=== PATIENT | female | born 1995 | race Caucasian/White ===

== ENCOUNTER 2019-01-18 05:05 | Inpatient (IN) | payer OTHER, SELFPAY ==
[2019-01-18] VITALS (19 sets, daily range): BP systolic 106–136; BP diastolic 60–86; PULSE 65–97; RESP 14–18; TEMP 36.1–36.8; O2SAT 95–100; BMI 31.6
[2019-01-18] MEDS: Lactated Ringers 1,000 ML 999 ML IV (05:47)
[2019-01-18 06:14] LABS: Hematocrit 38.2 % (37-47); Hemoglobin 13.1 g/dl (12.0-15.0); Mean Corp Hgb Conc 34.3 g/gl (32-36); Mean Corpuscular Hgb 29.2 pg (27.0-32.0); Mean Corpuscular Volume 85.1 fL (81-99); Platelet Count 205 K/mm3 (150-450); RBC Distribution Width SD 39.8 fl (35.1-43.9); Red Blood Count 4.49 M/mm3 (4.2-5.4); White Blood Count 10.1 K/mm3 (4.4-11.0)
[2019-01-18] MEDS: Lactated Ringers 1,000 ML 150 ML IV (06:36)
--- NOTE | 2019-01-18 06:46 | HP.PCM_ITS ---
- Problem List (1) Status: Chronic Qualifiers: Weeks of gestation: 39 weeks Qualified Code(s): Z3A.39 - 39 weeks gestation of History Date of Admission: 01/18/19 Final [place]: 01/24/19 Final [place] Source: [place] <20 weeks Gestational age: 39 Weeks and 1 Days History of this : This is a 23 year-old, G [], P [], at 39 weeks gestational age. Presenting for repeat for history of 2 previous cesareans. has been uneventful. Allergies amoxicillin Allergy (Verified 01/18/19 05:26) Rash menthol [From BenGay] Allergy (Verified 01/18/19 05:26) Rash methyl salicylate [From BenGay] Allergy (Verified 01/18/19 05:26) Rash sulfa eye drops Allergy (Uncoded 01/18/19 05:26) Other chemical burn Home Medications: Home Medications Vits [Prenatabs FA] 1 tablet PO DAILY 09/06/15 Smoking Status: Never smoker Alcohol: None Heart Tracing: Doppler heart tones 145 History Past Pregnancies: Past Pregnancies Delivery Date Name GA/Weeks Outcome Route Weight Infant Gender Labor Length Anesthesia Delivery Location Provider FOB Expected Infant Delivery Method: Scheduled Section Number of Visits: 12 Review of Systems Constitutional: Denies: Anorexia, Malaise, Fatigue Cardiovascular: Denies: Chest Pain, Palpitations Respiratory: Denies: Cough, Shortness of Breath Gastrointestinal: Denies: Abdominal Pain, Diarrhea, Dyspepsia, Nausea Genitourinary: Denies: Dysuria Gynecological: Denies: Breast symptoms Psychiatric: Denies: Anxiety, Depression Hematologic/ Lymphatic: Denies: Hx of blood clot Physical Exam General: Alert, Oriented x3 HEENT: Atraumatic, PERRLA. Negative for: Thyromegaly Cardiovascular: Regular rate, Regular Rhythm, No murmurs Lungs: Clear to auscultation Abdomen: Soft, Gravid Extremities:: No clubbing Neurological: Neuro grossly intact, Muscle tone normal SAND MIXER MACHINE: Normal external genitalia Estimated gestational size: Appropriate for gestational size Presentation: Cephalic Assessment/Plan This is a 23 year-old, G [], P [], at 39 weeks gestational age. Plan is for Repeat this am
[2019-01-18 06:53] LABS: Scan Indicated on CBC? Y/N NO
[2019-01-18] MEDS: Sodium Citrate/Citric Acid 30 ML UDC PO (07:11)
[2019-01-18] MEDS: Oxytocin 30 units/NS 500 ml 30 UNITS/500 ML IV.SOLN 167 UNITS IV (07:45)
--- NOTE | 2019-01-18 08:23 | OP.PCM_ITS ---
Problem List (1) Status: Chronic Qualifiers: Weeks of gestation: 39 weeks Qualified Code(s): Z3A.39 - 39 weeks gestation of Delivery Final [place]: 01/24/19 Gestational age: 39 Weeks and 1 Days Indications for : Repeat Elective Description of Procedure: Anesthesia spinal, Anesthesiologist Dr. Pantoja, Surgeon Lorraine, Air Compressor Mechanic Ricardo, Estimated blood loss 500 ml, Urine output: 200ml clear In the operating room adequate spinal anesthesia was obtained. A Pfannenstiel incision was made through the old scar. And the paracolic gutters packed with moist sponges. The bladder flap was created and an incision made through a very thin lower uterine segment which was extended digitally and the was delivered without any difficulty he was vigorous at . The cord was clamped long and cut and he was handed over to the waiting nurses. IV Pitocin was given the uterus contracted and the placenta was delivered with gentle traction. It was cleared of clots and debris and the uterine incision was repaired in 2 layers using #1 Vicryl #0 Monocryl to imbricate the first layer for good hemostasis. The sponges were removed and parietal peritoneum were repaired with #3-0 Vicryl. The fascia was closed with a running layer of #1 Vicryl in 2 segments and the subcutaneous tissue was irrigated, hemostasis secured with the Bovie, interrupted sutures of #3-0 Vicryl placed in the skin closed with a subcuticular layer of #4-0 Vicryl and Steri-Strips. Sponge lap needle and instrument counts were correct x2. Thank you Amniotic Membrane Rupture Type: Artificial Amniotic Fluid Description: Clear Placenta Disposition: [facility] Drain: Grimaldo to straight drain Cord Entanglement: Around neck x 2, loose Cord Vessel Description: 3 Vessels Infant Gender: Male (1 minute): 8 (5 minute): 9 Delayed cord clamping: Yes Pre-op Antibiotic Given: Clindamycin 600mg IV x1 and Gentamicin 1.5mg/kg IV x1 Complications: None - Admit VTE Documentation VTE Present on Admission: Yes VTE Mechan Device Prophylaxis: SCD's VTE Pharm Prophylaxis ordered?: No Reason prophylaxis not ordered:: Procedure Not Indicated Vaginal Delivery Final [place]: 01/24/19 Gestational age: 39 Weeks and 1 Days
[2019-01-18 09:27] LABS: HIV - WCH Non-Reactive (Nonreactive)
[2019-01-18] MEDS: Lactated Ringers 1,000 ML 100 ML IV ×2 (10:06→20:39)
[2019-01-18] MEDS: Acetaminophen 500 MG Tablet 1000 MG PO ×2 (10:46→18:07)
[2019-01-19] VITALS (7 sets, daily range): BP systolic 104–118; BP diastolic 60–80; PULSE 74–89; RESP 15–18; TEMP 36.4–36.9; O2SAT 96–98
[2019-01-19] MEDS: Acetaminophen 500 MG Tablet 1000 MG PO ×3 (02:12→17:52)
[2019-01-19 04:46] LABS: Hematocrit 36.1 % (37-47); Hemoglobin 11.9 g/dl (12.0-15.0); Mean Corpuscular Hgb 28.2 pg (27.0-32.0); Mean Corpuscular Volume 85.5 fL (81-99); Mean Platelet Vol. 10.1 fl (6.2-12.0); Platelet Count 175 K/mm3 (150-450); RBC Distribution Width CV 13.4 % (11.6-14.6); RBC Distribution Width SD 41.4 fl (35.1-43.9); Red Blood Count 4.22 M/mm3 (4.2-5.4); White Blood Count 8.6 K/mm3 (4.4-11.0)
[2019-01-19 04:51] LABS: Scan Indicated on CBC? Y/N NO
--- NOTE | 2019-01-19 08:00 | PCM.PN.OB ---
Subjective: Doing well other than uterine cramping especially with nursing Objective: Looks very well and cheerful - Physical Exam General: Alert, Oriented x3 HEENT: Atraumatic Lungs: Clear to auscultation Cardiovascular: Regular rate, Regular Rhythm, No murmurs Abdomen: Bowel Sounds Present, Soft, Non Tender Extremities: No edema, No Calf Tenderness Comment: Dressing clean and dry Vital Signs Temp Pulse Resp BP Pulse Ox 98.4 F 78 15 111/68 97 01/19/19 04:29 01/19/19 06:25 01/19/19 06:25 01/19/19 04:29 01/19/19 06:25 Oxygen Delivery Method Room Air Weight: 83.7 kg Body Mass Index (BMI) 31.6 Intake and Output for Last 24 Hours 01/17/19 01/18/19 01/19/19 23:59 23:59 23:59 Intake Total 4573 / 4573 1496 / 1496 Output Total 1999 / 1999 2200 / 2200 Balance 2573 / 2573 -704 / -704 Laboratory Tests Past 24 Hrs 01/18/19 01/18/19 01/19/19 05:45 11:40 04:28 WBC 8.6 RBC 4.22 Hgb 11.9 L Hct 36.1 L MCV 85.5 MCH 28.2 MCHC 33.0 RDW 13.4 RDW Differential 41.4 Plt Count 175 MPV 10.1 HIV 1&2 Antibody Non-Reactive Screen NEGATIVE Baby's Blood Type A POSITIVE Baby's KATHLEEN NEGATIVE Medical Necessity - Tobacco Use Smoking Status: Never smoker Assessment/Plan POD #1 after repeat . Doing well. OK to go home if baby ready.
--- NOTE | 2019-01-19 08:05 | PCM.DCCSEC ---
Discharge Activity: May Not Drive, May Shower Return to work on:: 03/03/19 May shower in (days): 1 May resume sexual activity in: 6-8 weeks Lifting Restrictions: 10 pounds Call your doctor if your incision/area has: Increased Pain/ Swelling, Increased Redness, Foul Smelling Discharge, Swelling at the incision site Call your doctor if you observe: Fever of 101 or Higher, Inability to urinate, Inability to have a bowel movement, Using more than one pad per hour Suture Line Care: Avoid Pulling/Pushing Change Dressing in (Days):: 0 Additional Instructions: If you experience any of the following, contact your healthcare provider. Bleeding that soaks a pad every hour for 2 hours Fever 100.4 or higher Unrelieved incision or abdominal pain Swelling, redness, discharge or bleeding from your incision or episiotomy site Your incision begins to separate Problems urinating (including inability to urinate or burning while urinating). Visual changes Severe headache Flu-like symptoms Pain or redness in one of both of your breasts Pain, warmth, tenderness or swelling in your legs, especially the calf area Frequent nausea and vomiting Symptoms of depression or anxiety If you experience any of the following, call 911 or go to the nearest Emergency Room. Chest pain Problems breathing Seizure activity Partial or complete paralysis of a body part, slurred speech, weakness or drooping of the face, or a sudden inability to walk or hold your balance Allergies/Adverse Reactions: Allergies amoxicillin Allergy (Verified 01/18/19 05:26) Rash menthol [From BenGay] Allergy (Verified 01/18/19 05:26) Rash methyl salicylate [From BenGay] Allergy (Verified 01/18/19 05:26) Rash sulfa eye drops Allergy (Uncoded 01/18/19 05:26) Other chemical burn Medications to take at Discharge Vits [Prenatabs FA] 1 tablet PO DAILY 09/06/15 Follow-Up: Call to make an appointment with your doctor for an incision check in 1-2 weeks. You will also need a 6 week post- follow up appointment. Test results from this visit will be discussed in further detail at your follow-up appointment, if applicable. Primary Care Physician: Care Physician,No Primary [Primary Care Provider] -
--- NOTE | 2019-01-19 08:08 | DCINST_ITS ---
Discharge Activity: May Not Drive, May Shower Return to work on:: 03/03/19 May shower in (days): 1 May resume sexual activity in: 6-8 weeks Lifting Restrictions: 10 pounds Call your doctor if your incision/area has: Increased Pain/ Swelling, Increased Redness, Foul Smelling Discharge, Swelling at the incision site Call your doctor if you observe: Fever of 101 or Higher, Inability to urinate, Inability to have a bowel movement, Using more than one pad per hour Suture Line Care: Avoid Pulling/Pushing Change Dressing in (Days):: 0 Additional Instructions: If you experience any of the following, contact your healthcare provider. * Bleeding that soaks a pad every hour for 2 hours * Fever 100.4 or higher * Unrelieved incision or abdominal pain * Swelling, redness, discharge or bleeding from your incision or episiotomy site * Your incision begins to separate * Problems urinating (including inability to urinate or burning while urinating). * Visual changes * Severe headache * Flu-like symptoms * Pain or redness in one of both of your breasts * Pain, warmth, tenderness or swelling in your legs, especially the calf area * Frequent nausea and vomiting * Symptoms of depression or anxiety If you experience any of the following, call 911 or go to the nearest Emergency Room. * Chest pain * Problems breathing * Seizure activity * Partial or complete paralysis of a body part, slurred speech, weakness or drooping of the face, or a sudden inability to walk or hold your balance Allergies/Adverse Reactions: Allergies amoxicillin Allergy (Verified 01/18/19 05:26) Rash menthol [From BenGay] Allergy (Verified 01/18/19 05:26) Rash methyl salicylate [From BenGay] Allergy (Verified 01/18/19 05:26) Rash sulfa eye drops Allergy (Uncoded 01/18/19 05:26) Other chemical burn Medications to take at Discharge Vits [Prenatabs FA] 1 tablet PO DAILY 09/06/15 Follow-Up: Call to make an appointment with your doctor for an incision check in 1-2 weeks. You will also need a 6 week post- follow up appointment. Test results from this visit will be discussed in further detail at your follow- up appointment, if applicable. Primary Care Physician: Care Physician,No Primary [Primary Care Provider] -
[2019-01-19] MEDS: Ibuprofen 600 MG Tablet PO ×2 (10:13→17:52)
== END 2019-01-19 18:50 | disposition home or self-care (01) | DRG 788 ==
PROVIDERS: Admitting Provider Obstetrics & Gynecology Gynecology; Referring Provider Obstetrics & Gynecology Gynecology; Visit Provider Obstetrics & Gynecology Gynecology
PROC: 10D00Z1 Extraction of Products of Conception, Low, Open Approach (ICD-10-PCS; CPT 59514; principal; 2019-01-18 07:15)
DX: O34.211 Maternal care for low transverse scar from previous cesarean delivery (principal); O69.81X0 Labor and delivery complicated by cord around neck, without compression, not applicable or unspecified; Z3A.39 39 weeks gestation of pregnancy; Z37.0 Single live birth
CPT/HCPCS: 85027; 85461; 86703; 86850; 86900; 86901; 90384; 99218; J7120; G0378; J2405; J2790